=== PATIENT | male | born 1985 | race Caucasian/White ===

== ENCOUNTER 2023-11-28 13:54 | Outpatient (AMB) | payer OTHER, SELFPAY ==
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
[2023-11-28 14:05] VITALS: BMI 27.8
== END 2023-11-28 14:27 | disposition home or self-care (01) ==
PROVIDERS: PCP Internal Medicine; Visit Provider Physician Assistant
DX: M76.72 Peroneal tendinitis, left leg (principal)
CPT/HCPCS: 99203

== ENCOUNTER → 2023-11-28 13:54 | Outpatient (BNVA) | payer OTHER, SELFPAY | PROVIDERS: PCP Internal Medicine; Visit Provider Physician Assistant ==

== ENCOUNTER 2024-03-22 03:06 | Emergency (ER) | payer MEDICAID, SELFPAY ==
[2024-03-22] VITALS (8 sets, daily range): BP systolic 98–120; BP diastolic 61–79; PULSE 74–101; RESP 14–26; TEMP 36.7; O2SAT 95–100; BMI 28.7
[2024-03-22] MEDS: Haloperidol Lactate 5 MG/ML VIAL IM (03:16)
[2024-03-22] MEDS: LORazepam 2 MG/ML VIAL IM (03:16)
[2024-03-22] MEDS: diphenhydrAMINE HCL 50 MG/ML VIAL IM (03:16)
--- NOTE | 2024-03-22 03:22 | ED_ITS ---
HPI - General Adult General Chief complaint: Psychiatric Symptoms Stated complaint: SI violent threats and Triple stack of Ecstacy Time Seen by Provider: 03/22/24 03:20 Source: patient, EMS and police Mode of arrival: EMS Limitations: no limitations History of Present Illness ED Provider: DR. Rosa HPI narrative: This is a 38-year-old male came in under the police custody patient is agitated, combative and belligerent with aggressive behavior in the emergency department, SI, HI. Aggressive toward the police and staff. Patient admitted to using ecstasy, patient required sedation to control his erratic behavior patient was given Benadryl/Haldol/Ativan. Related Data Home Medications ?Medication ?Instructions ?Recorded ?Confirmed No Known Home Meds 11/28/23 11/28/23 Allergies Allergy/AdvReac Type Severity Reaction Status Date / Time Iodinated Contrast Media Allergy Unknown UNKNOWN Verified 03/22/24 03:26 [IV CONTRAST] procaine [From NOVOCAIN] Allergy Unknown UNKNOWN Verified 03/22/24 03:26 IV contrast Allergy Unknown Unknown Uncoded 03/22/24 03:26 Novocain Allergy Unknown Unknown Uncoded 03/22/24 03:26 Review of Systems Review of Systems: Yes Unobtainable due to mental condition (Agitation.) [facility] [place] Social History Social History Alcohol intake: current Smoked in Last 30 Days: Yes Use of substances other than those prescribed or required for medical reasons: Yes Substance Use Type: Crack/Cocaine and Hallucinogens Advance Directives: No Advance Directives Information Provided: No Do you have a plan to hurt others: Specific Physical Exam ED Vital Signs: Vital Signs - 24 hr 03/22/24 03:40 03/22/24 03:55 03/22/24 04:10 Pulse Rate 101 H 91 93 Respiratory Rate 22 H 16 15 Blood Pressure 111/65 98/63 112/61 Pulse Oximetry 95 98 97 Oxygen Delivery Method Nasal Cannula Nasal Cannula Nasal Cannula Oxygen Flow Rate 2 2 2 03/22/24 04:25 03/22/24 05:58 Pulse Rate 85 74 Respiratory Rate 15 14 Blood Pressure 111/63 120/79 Pulse Oximetry 97 100 Oxygen Delivery Method Nasal Cannula Nasal Cannula Oxygen Flow Rate 2 2 BMI result Body Mass Index 28.7 Vital signs have been reviewed and appear to be correct. Blood pressure elevated. Heart rate normal. Respiratory rate normal. Temperature normal. Oxygen saturation normal. Appearance: Agitated, combative, belligerent, Alert. No acute distress. Head: Normal external exam. Normocephalic. Atraumatic. No Foote signs noted. No raccoon eyes noted Eyes: PERRLA. EOMI. Conjunctiva and sclera normal. Eyelids normal. ENT: TM's Normal. Pharynx normal. Uvula midline. Moist mucous membranes. No trismus noted. No drooling noted. No muffled voice noted. Neck: Normal inspection. Neck supple. FROM. No adenopathy. Thyroid Normal. No meningeal signs. No neck mass noted. CVS: Normal heart rate and rhythm. Heart sound normal. No murmurs noted. Pulses normal throughout. Respiratory: No respiratory distress. Painless inspiration. Breath sounds normal. No wheezes/rales/rhonchi noted. Chest nontender. No accessory muscle usage noted or decreased air movement noted. Abdomen: Soft and nontender. Bowel sounds normal in all 4 quadrants. No distention noted. No organomegaly noted. No visible injury noted. Back: No CVA tenderness. Full range of motion noted. Skin: Skin warm and dry. Normal skin color. Normal skin turgor. No rashes/lesions/lacerations noted. Extremities: No lower extremity edema. Extremities exhibit normal range of motion. Extremities nontender. Neuro: Oriented X 3. Cranial nerve exam: II-XII are grossly intact No motor deficit. No sensory deficit. Reflexes normal. Course Reevaluation(s) Reevaluation #1: Patient received Haldol/Ativan/Benadryl now is sleeping, patient required 2 L of nasal cannula O2 satting 99% otherwise VSS. Signed out to the next team for evaluation when he is ready to be discharged. Time: 06:30 Medications Administered Discontinued Medications Generic Name Dose Route Start Last Admin Trade Name Freq PRN Reason Stop Dose Admin Diphenhydramine HCl 50 mg 03/22/24 03:21 03/22/24 03:16 Diphenhydramine Hcl 50 Mg/Ml Vial IM 03/22/24 03:22 50 mg ONCE ONE Administration Haloperidol Lactate 5 mg 03/22/24 03:21 03/22/24 03:16 Haloperidol Lactate 5 Mg/Ml Vial IM 03/22/24 03:22 5 mg ONCE ONE Administration Lorazepam 2 mg 03/22/24 03:21 03/22/24 03:16 Lorazepam 2 Mg/Ml Vial IM 03/22/24 03:22 2 mg ONCE ONE Administration Medical Decision Making Differential Diagnosis Differential Diagnoses: The differential diagnosis associated with the presentation includes (Substance abuse, acute psychosis, SI.) Admission/Observation Consideration of admission/observation: Escalation of care including admission/observation considered Discharge Plan Discharge Clinical Impression: Aggressive behavior, Substance abuse Patient Disposition: Still a Patient Prescriptions: No Action No Known Home Meds Print Language: Khmer
--- NOTE | 2024-03-22 04:30 | PC.NURSE ---
pt arrive by EMS, in police custody, pt aggressive, combative and in restraints, Unable to redirect pt, security and [place] police at the bedside, pt in physical restraint and Medicated IM. All limbs checked for pulses and CMS intact. Physical restraints moved at 04:19am
--- NOTE | 2024-03-22 06:07 | MHC.CARE ---
T/W spoke with the Provider. CARE team will not assess as Pt is in Police custody.
--- NOTE | 2024-03-22 06:08 | PC.NURSE ---
unable to complete [place] scale or psych evaluation at this time, pt is sleeping
== END 2024-03-22 07:20 ==
PROVIDERS: Emergency Provider Emergency Medicine
DX: R45.6 Violent behavior (principal); R45.851 Suicidal ideations; F14.10 Cocaine abuse, uncomplicated; F16.10 Hallucinogen abuse, uncomplicated
CPT/HCPCS: 96372; 99285; J1200; J1630; J2060